=== PATIENT | male | born 1970 | race Caucasian/White ===

== ENCOUNTER 2018-12-02 11:18 | Emergency (ER) | payer MEDICAID ==
[~2018-12-02] VITALS: Ht 170.2 cm; Wt 74.7 kg
[2018-12-02 11:20] VITALS: BP 148/91
--- NOTE | 2018-12-02 12:54 | NUR ---
Patient/Caregiver given discharge instructions and they have confirmed that they understand the instructions. Patient ambulatory with steady gait.
== END 2018-12-02 12:55 | disposition home or self-care (01) ==
LOC: ED 12:49
DX: M70.41 Prepatellar bursitis, right knee (principal); G89.29 Other chronic pain; Z87.891 Personal history of nicotine dependence
CPT/HCPCS: 99283